=== PATIENT | female | born 1995 | race Caucasian/White ===

== ENCOUNTER 2016-04-26 18:46 | Emergency (ER) | payer OTHER | END 2016-04-26 19:54 | disposition home or self-care (01) | LOC: ER 18:46 | DX: J10.1 Influenza due to other identified influenza virus with other respiratory manifestations (principal); Z90.49 Acquired absence of other specified parts of digestive tract; R19.7 Diarrhea, unspecified | CPT/HCPCS: 87070; 87400; 87880; 99283 ==

== ENCOUNTER 2016-04-29 20:41 | Emergency (ER) | payer OTHER | END 2016-04-30 00:31 | disposition left against medical advice (07) | LOC: ER 20:41 | DX: Z53.21 Procedure and treatment not carried out due to patient leaving prior to being seen by health care provider (principal) | CPT/HCPCS: 99211 ==